=== PATIENT | male | born 1990 | race Caucasian/White ===

== ENCOUNTER 2023-12-30 09:38 | Emergency (ER) | payer SELFPAY ==
[2023-12-30 09:42] VITALS: BP 143/96
[2023-12-30 09:53] VITALS: BMI 31.4
[2023-12-30 09:54] VITALS: BP 138/105
--- NOTE | 2023-12-30 10:02 | ED.GENMED ---
History of Present Illness
General
Chief Complaint: Flank Pain
Source: patient
Exam Limitations: none
Time Seen by Provider: 12/30/23 09:45
Nursing documentation reviewed up to this point in time: agreed with
History of Present Illness
History of Present Illness:
33-year-old male past medical history of kidney stones presenting to the emergency department today with concerns of right-sided flank pain over the past 2 days ongoing achiness but intermittent sharp pain. Has been able to urinate has had nausea
some intermittent vomiting no abdominal pain. No fevers
Review of Systems
Review of Systems
Allergies reviewed?: Yes
All Other Systems: ROS reviewed and negative except as documented in HPI and ROS
Phy Exam
Physical Exam
Physical Exam:
GENERAL: Alert , in no apparent distress
EYE: pupils equal and reactive
NECK: Supple, no significant adenopathy.
ENT: o/p clr, mmm.
CARDIAC: Regular rate and rhythm .
LUNGS: Clear breath sounds bilaterally, no acute respiratory distress, no wheezes/rales/rhonchi
ABDOMEN: Soft, without focal tenderness, no r/g, no cvat
NEUROLOGICAL: Alert and oriented, no focal neuro deficits
SKIN: Warm and dry, skin intact.
MUSCULOSKELETAL: No edema, well perfused.
PSYCH: Normal and appropriate interaction.
Course
Orders/Labs/Results
Orders:
Orders
12/30/23 09:47
0.9% Sodium Chloride 1000 ml [Nss] 1,000 ml IV BOLUS
Ketorolac [Toradol] 15 mg IV NOW STA
12/30/23 09:48
CT Abd/pel Without Iv Or Oral Urgent
Comment:
Reason For Exam: right flank pain
12/30/23 10:02
Complete Blood Count/With Diff Urgent
Comprehensive Metabolic Panel Urgent
Urinalysis Reflex To Culture Urgent
Date Specimen was Collected: 12/30/23
Time Specimen was Collected: 09:55
Urine Microscopic Reflex Cult Urgent
Urine Culture Urgent
PARTH Source: U
Specimen Description:
Date Specimen was Collected: 12/30/23
Time Specimen was Collected: :
Ondansetron Injectable [Zofran] 4 mg IV NOW STA
12/30/23 12:23
BMP [Basic Metabolic Panel] Urgent
Abnormal Lab Results
12/30/23 12/30/23
10:02 12:23
MPV 10.7 H fL
(7.4-10.4)
Absolute Neuts (auto) 8.2 H 10^3/uL
(1.4-6.5)
Absolute Monos (auto) 0.9 H 10^3/uL
(0.1-0.6)
Neutrophils % 75.8 H %
(42.2-75.2)
Lymphocytes % 14.9 L %
(20.5-51.1)
Carbon Dioxide 20 L mmol/L
(22-30)
Creatinine 2.2 H mg/dL 1.8 H mg/dL
(0.7-1.3) (0.7-1.3)
Glucose 122 H mg/dl 107 H mg/dl
(70-99) (70-99)
Total Bilirubin 1.7 H mg/dl
(0.2-1.3)
Urine Ketones Trace A
(Negative)
Ur Occult Blood Reflex 3+ A
(Negative)
Urine Bilirubin 1+ A
(Negative)
Leukocyte Esterase Rfl Trace A
(Negative)
Urine RBC 40-50 A /HPF
(0-2)
Urine WBC (Reflex) 11-15 A /HPF
(0-5)
Urine Bacteria (Reflex) Few A
(Negative)
Urine Glucose Trace A
(Negative)
Urine Albumin (Reflex) 1+ A
(Neg - Trace)
10/09/24 10:02
12/30/23 12:23
Vital Signs
Initial and Last Documented VS:
Initial Vital Signs
Temp Pulse Resp BP Pulse Ox
98.3 F 95 18 143/96 97
12/30/23 09:42 12/30/23 09:42 12/30/23 09:42 12/30/23 09:42 12/30/23 09:42
Last Documented Vital Signs
Temp Pulse Resp BP Pulse Ox
98.3 F 67 15 124/67 98
12/30/23 09:42 12/30/23 12:27 12/30/23 12:27 12/30/23 12:27 12/30/23 12:27
MDM/Problems Addressed
MDM/Problems Addressed:
33-year-old male presenting to the emergency department today with concerns of right-sided flank pain over the past 2 days some darkening of his urine as well and associated nausea. Upon arrival vital signs are normal patient no distress no
reproducible pain to the abdomen or flank. Labs showing elevated creatinine level of 2.2. No old labs for comparison. He denies any known kidney disease. Otherwise CT scan was performed that did not show any active stone. He did urinate and
claimed that there was some debris in the urine cup. This could potentially represent the stone. patient's repeated creatinine level 1.8 Case was discussed with nephrology recommending getting repeated labs in the next few days but otherwise
stable for outpatient follow-up. Urinalysis with small mount of white blood cells however there is a few squamous epithelial cells. This does not seem to be consistent with any acute infection culture was sent otherwise patient stable for
outpatient management return precautions given.
*Critical Care Note
Total Time (30-74mins, 75-104mins- exclusive of procedures): Not Applicable
ED Attending Note
-
Portions of this chart may have been created with voice recognition software.� Occasional wrong word or��sound alike� substitutions may have occurred due to the inherent limitations of voice recognition software.
Discharge Plan
Departure
Patient Disposition: Home (Routine Discharge)
Date of Disposition: 12/30/23
Time of Disposition: 14:01
Patient with high blood pressure during this ER visit?: No
Condition: Good
Covid-19: Not Applicable
Discharge Problem:
Acute flank pain, Elevated serum creatinine
Instructions: Flank Pain (DC)
Referrals:
Shiela Blackwell MD [Family Provider] -
Fawn Mcclendon MD [Active] - Follow up in 5-7 days
Activity Restrictions/Additional Instructions:
You came to the emergency department today with concerns of flank pain. This may have been from a kidney stone. You had an creatinine level. This will need to be repeated in the next few days to ensure this is going back down to normal.
Otherwise you will need to follow-up with nephrology if this stays elevated. Return to the emergency department for any worsening, new or concerning symptoms.
Interventions
Interventions:
*Risk Screen - Suicide Last Done: 12/30/23 09:42
*General Assessment Last Done: 12/30/23 09:42
*Neglect/Abuse Screening Last Done: 12/30/23 09:42
ED- Fall Risk Assessment Last Done: 12/30/23 09:54
*ED COVID-19 Vaccine History Last Done: 12/30/23 09:54
EZ-Lonjgz-Jamwetehst Assessment Last Done: 12/30/23 09:54
ED-Male Genitourinary Assessment Last Done: 12/30/23 09:54
Discharge Date and Time
Print Language: TURKISH
[2023-12-30] MEDS: TORADOL 15 MG IV (10:04)
[2023-12-30] MEDS: NSS 1000 IV (10:04)
[2023-12-30 10:22] LABS: % Basophils 0.6 % (0-2); % Immature Granulocytes 0.2 % (0-0.5); % Lymphocytes 14.9 % (20.5-51.1); % Monocytes 8.5 % (1.7-9.3); % Neutrophils 75.8 % (42.2-75.2); Absolute Basophils 0.1 10^3/uL (0-0.2); Absolute Lymphocytes 1.6 10^3/uL (1.2-3.4); Absolute Monocytes 0.9 10^3/uL (0.1-0.6); Absolute Neutrophils 8.2 10^3/uL (1.4-6.5); Hematocrit 46.5 % (39.0-52.0); Hemoglobin 16.9 g/dL (13.0-18.0); Mean Corp Hgb Conc. 36.3 g/dL (33.0-37.0); Mean Corpuscular Hgb 29.8 pg (27.0-31.0); Mean Corpuscular Volume 81.9 fL (80.0-94.0); Mean Platelet Volume 10.7 fL (7.4-10.4); Nucleated Red Blood Cells % 0 % (-); Platelet Count 274 10^3/uL (130-400); Red Blood Cell Count 5.68 10^6/uL (4.70-6.10); Red Cell Dist. Width 12.4 % (11.5-14.5); White Blood Cell Count 10.8 10^3/uL (4.8-10.8)
[2023-12-30 10:26] LABS: Urine Albumin 1+ (Neg - Trace); Urine Bilirubin 1+ (Negative); Urine Character Slightly Cloudy (Clear); Urine Color Yellow; Urine Glucose Trace (Negative); Urine Ketone Trace (Negative); Urine Leukocyte Trace (Negative); Urine Nitrite Negative (Negative); Urine Occult Blood 3+ (Negative); Urine Specific Gravity 1.025 (<1.030); Urine Urobilinogen Negative (Neg - 1+)
[2023-12-30 10:35] LABS: ALT (SGPT) 23 U/L (0-50); AST (SGOT) 20 U/L (17-59); Alkaline Phosphatase 99 U/L (38-126); Blood Urea Nitrogen 18 mg/dl (9-20); Carbon Dioxide 20 mmol/L (22-30); Chloride 101 mmol/L (98-107); Estimated Creatinine Clearance 52 ml/min; Glucose 122 mg/dl (70-99); Potassium 4.1 mmol/L (3.5-5.1); Sodium 138 mmol/L (135-145); Total Bilirubin 1.7 mg/dl (0.2-1.3); Total Protein 7.8 g/dl (6.3-8.2); eGFR 39.08
[2023-12-30 11:08] LABS: Urine Mucus Many
[2023-12-30 11:09] LABS: Urine Amorphous Seen
[2023-12-30 11:11] LABS: Urine Red Blood Cell 40-50 /HPF (0-2)
[2023-12-30 11:14] LABS: Urine Bacteria Few (Negative)
[2023-12-30 12:23] VITALS: BP 124/67
[2023-12-30 12:27] VITALS: BP 124/67
[2023-12-30 12:58] LABS: Blood Urea Nitrogen 19 mg/dl (9-20); Calcium 9.3 mg/dl (8.4-10.2); Carbon Dioxide 24 mmol/L (22-30); Chloride 103 mmol/L (98-107); Estimated Creatinine Clearance 64 ml/min; Glucose 107 mg/dl (70-99); Potassium 4.4 mmol/L (3.5-5.1); Sodium 138 mmol/L (135-145); eGFR 49.72
[2023-12-30 14:18] VITALS: BP 130/70
[2023-12-30 14:26] VITALS: BP 130/70
== END 2023-12-30 14:27 | disposition home or self-care (01) ==
LOC: EMR 09:38
PROVIDERS: Physician Assistant; EMERGENCY PHYSICIAN Emergency Medicine; FAMILY PHYSICIAN Family Medicine
DX: R10.9 Unspecified abdominal pain (principal); R79.89 Other specified abnormal findings of blood chemistry; Z87.442 Personal history of urinary calculi
CPT/HCPCS: 99284; 96374; 96375; 96361; 74176; 80048; 80053; 81003; 81015; 85025; 87086